=== PATIENT | female | born 1980 | race Caucasian/White ===

== ENCOUNTER 2024-03-07 13:48 | Outpatient (CLI) | payer OTHER, SELFPAY ==
--- NOTE | 2024-03-07 14:00 | CT_ITS ---
Patient: YAKELIN ROE Facility:?[facility] RIS Patient ID:?[id number] Site Patient ID:?[id number]. Site :?[id number] Study:?CT-Extremity Left FOOT-03/07/2024 8:01:42 PM Ordering Physician:LOREE Final Report: EXAM: CT OF THE LEFT FOOT, WITHOUT CONTRAST CLINICAL INDICATION: Pain following recent injury. COMPARISON PLAIN FILMS: 03/07/2024. COMPARISON CROSS-SECTIONAL IMAGING STUDIES: CT of the ankle from same day. TECHNICAL: Non-contrast CT of the foot with axial images. Sagittal oblique and coronal oblique images were created. FINDINGS: OSSEOUS STRUCTURES: Thin subcentimeter avulsion fractures from the dorsal and aspect of the anterior process of the calcaneus at the calcaneocuboid joint. Thin subcentimeter avulsion fractures from the plantar medial aspect of the cuboid at the calcaneocuboid articulation. No dorsal talar or navicular avulsion fractures. No additional fractures are evident. JOINT SPACES: Joint spaces within the visualized forefoot, at the midfoot forefoot junction and within the midfoot are maintained. Normal Lisfranc interval. TENDONS AND MUSCLES: The flexor and extensor tendons are intact. No muscle atrophy or edema. SOFT TISSUES: Dorsal subcutaneous edema in the hindfoot and midfoot and lateral aspect of the midfoot. No subcutaneous hematoma. IMPRESSION: 1. Thin subcentimeter avulsion fracture fragments of the anterior process of the calcaneus and cuboid at the calcaneocuboid articulation. 2. Dorsal and lateral subcutaneous edema. Please note that all CT scans at this facility use dose modulation, iterative reconstruction, and/or weight-based dosing when appropriate to reduce radiation dose to as low as reasonably achievable. Dictated by Kennedy Casas MD @ 03/08/2024 1:02:14 PM Signed by:?Kennedy Casas MD @03/08/2024 1:02:14 PM (Electronic Signature
--- NOTE | 2024-03-07 14:30 | CT_ITS ---
Patient: YAKELIN ROE Facility:?[facility] Patient ID:?[id number] Site Patient ID:?[id number]. Site :?[id number] Study:?CT-Extremity Left ANKLE-03/07/2024 8:00:56 PM Ordering Physician:LOREE Final Report: EXAM: CT OF THE LEFT ANKLE, WITHOUT CONTRAST CLINICAL INDICATION: Pain following recent injury. COMPARISON STUDIES: 03/07/[address] of the foot from today. TECHNICAL: Non-contrast CT of the ankle with axial images. Sagittal oblique and coronal oblique reformatted images were created. FINDINGS: OSSEOUS STRUCTURES: Tibia: No fracture. Fibula: No fracture. Talus: No fracture. Calcaneous: Thin subcentimeter avulsion fractures of the lateral margin of the anterior process of the calcaneus at the calcaneocuboid articulation. Hindfoot: No fracture of the dorsal navicular. JOINT SPACES: Ankle: The ankle joint space is maintained without effusion. No talar dome osteochondral lesion. No loose bodies. Subtalar and talonavicular: Joint spaces are maintained. SOFT TISSUES: Subcutaneous edema in the dorsal aspect of the hindfoot and lateral ankle. No subcutaneous hematoma. MUSCLES: No intramuscular mass or hematoma. No muscle atrophy. TENDONS: The Achilles tendon is intact. No subluxation of the peroneal tendons. No retracted tendon tear. IMPRESSION: 1. Thin subcentimeter avulsion fractures of the anterior process of the calcaneus laterally at the calcaneocuboid articulation. Please see CT of the foot for further discussion of the midfoot. 2. Subcutaneous edema in the dorsal hindfoot and lateral ankle. Please note that all CT scans at this facility use dose modulation, iterative reconstruction, and/or weight-based dosing when appropriate to reduce radiation dose to as low as reasonably achievable. Dictated by Kennedy Casas MD @ 03/08/2024 12:57:48 PM Signed by:?Kennedy Casas MD @03/08/2024 12:57:48 PM (Electronic Signature)
== END 2024-03-07 13:49 | disposition home or self-care (01) ==
PROVIDERS: PCP Family Medicine; Visit Provider Physician Assistant
DX: M79.672 Pain in left foot (principal); S92.002A Unspecified fracture of left calcaneus, initial encounter for closed fracture; M25.572 Pain in left ankle and joints of left foot; S99.912A Unspecified injury of left ankle, initial encounter; S99.922A Unspecified injury of left foot, initial encounter
CPT/HCPCS: 73700

== ENCOUNTER 2024-08-01 12:36 | Outpatient (CLI) | payer OTHER, SELFPAY | END 2024-08-01 12:37 | disposition home or self-care (01) | LOC: FBOREF 12:37 | PROVIDERS: PCP Family Medicine; Visit Provider Family Medicine | DX: R31.9 Hematuria, unspecified (principal) | CPT/HCPCS: 80048; 87086 ==

== ENCOUNTER 2024-08-05 14:23 | Outpatient (CLI) | payer OTHER, SELFPAY ==
--- NOTE | 2024-08-05 15:00 | CRLHL7_ITS ---
For Patients: As a result of the Century Cures Act, medical imaging exams and procedure reports are released immediately into your electronic medical record. You may view this report before your referring provider. If you have questions, please contact your health care provider. INDICATION: Malignant neoplasm of left kidney; hematuria; partial left nephrectomy. COMPARISON: None. TECHNIQUE: CT abdomen and pelvis with intravenous contrast; coronal and sagittal reformats. FINDINGS: No nodules through the lung bases. No evidence of pleural effusion. Normal size cardiac silhouette without any pericardial effusion. Diffuse fatty infiltration of the liver. No focal hepatic or splenic pathology. No pancreatic pathology. Gallbladder is unremarkable. No adrenal pathology. Deformity lateral aspect upper pole left kidney probably related to the previous surgery. No enhancing mass lesions in the kidneys on either side. No retroperitoneal lymphadenopathy. Normal appendix. 2.3 cm cyst left ovary. IMPRESSION: 1. Nonenhancing lesions in the kidneys on either side; slight deformity upper pole left kidney probably postop. 2. Diffuse fatty infiltration of the liver. 3. A 2.3 cm cystic lesion left adnexa; suggest obtaining a pelvic ultrasound for further assessment. Please note that all CT scans at this facility use dose modulation, iterative reconstruction, and/or weight-based dosing when appropriate to reduce radiation dose to as low as reasonably achievable. Dictated by Niko Cerda MD @ 08/08/2024 12:38:18 PM (Electronically Signed)
== END 2024-08-05 14:24 | disposition home or self-care (01) ==
LOC: CT 14:24
PROVIDERS: PCP Family Medicine; Visit Provider Family Medicine
DX: C64.9 Malignant neoplasm of unspecified kidney, except renal pelvis (principal); R31.9 Hematuria, unspecified; K76.0 Fatty (change of) liver, not elsewhere classified; R93.89 Abnormal findings on diagnostic imaging of other specified body structures
CPT/HCPCS: 74177; Q9967

== ENCOUNTER 2024-08-16 16:51 | Outpatient (CLI) | payer OTHER, SELFPAY ==
--- NOTE | 2024-08-16 17:00 | CRLHL7_ITS ---
For Patients: As a result of the Century Cures Act, medical imaging exams and procedure reports are released immediately into your electronic medical record. You may view this report before your referring provider. If you have questions, please contact your health care provider. CLINICAL HISTORY: f/u CT left adnexal cyst TECHNIQUE: 2D johnson scale ultrasound. In addition color Doppler and spectral Doppler analysis was performed of the pelvis using a transvaginal approach. Comparison CT 08/05/2024 FINDINGS: On transvaginal imaging, the myometrium has a normal uniform echotexture. The endometrial lining measures 16 mm in thickness. The right ovary measures 2.7 x 1.5 x 2.0 cm in size and the right ovary measures 2.8 x 2.1 x 2.1 cm. The ovaries demonstrate normal arterial and venous blood flow on color Doppler and spectral Doppler analysis, as visualized. Arterial flow documentation of the right ovary is difficult due to body habitus. There are no suspicious fluid collections within the cul-de-sac. IMPRESSION: Interval resolution of previously noted left ovarian cyst. Dictated by Nathan Chavez MD @ 08/18/2024 12:33:54 PM (Electronically Signed)
== END 2024-08-16 16:52 | disposition home or self-care (01) ==
LOC: US 16:52
PROVIDERS: PCP Family Medicine; Visit Provider Family Medicine
DX: N83.202 Unspecified ovarian cyst, left side (principal); N83.201 Unspecified ovarian cyst, right side
CPT/HCPCS: 76830; 93976

== ENCOUNTER 2024-10-10 13:31 | Outpatient (CLI) | payer OTHER, SELFPAY ==
--- NOTE | 2024-10-10 13:40 | CRLHL7_ITS ---
For Patients: As a result of the Century Cures Act, medical imaging exams and procedure reports are released immediately into your electronic medical record. You may view this report before your referring provider. If you have questions, please contact your health care provider. BILATERAL DIGITAL SCREENING MAMMOGRAM WITH COMPUTER-AIDED DETECTION AND TOMOSYNTHESIS CLINICAL HISTORY: Routine screening exam. COMPARISON: 01/22/2023. TECHNIQUE: Digital mammogram in CC and MLO projections including computer-aided detection (CAD). Tomosynthesis was used in this interpretation. BREAST COMPOSITION: There are scattered areas of fibroglandular density. FINDINGS: RIGHT Breast: No suspicious findings LEFT Breast: Focal asymmetric density lateral left breast 5 cm from the nipple. IMPRESSION: LEFT breast asymmetry/mass. RECOMMENDATIONS: Additional mammographic views of the LEFT breast including 3D spot compression CC/MLO. LEFT breast ultrasound may also be required. The [facility] will contact the patient. A lay language report of this examination will be provided to the patient. BI-RADS Category 0: Incomplete: Need Additional Imaging Evaluation Dictated by Nathan Chavez MD @ 10/11/2024 8:56:12 AM YOSELYN/[email or web address] DW/Dictated by: Nathan Chavez MD @ 10/11/2024 8:56:00 AM (Electronically Signed)
== END 2024-10-10 13:32 | disposition home or self-care (01) ==
LOC: MAMMO 13:32
PROVIDERS: PCP Family Medicine; Visit Provider Family Medicine
DX: Z12.31 Encounter for screening mammogram for malignant neoplasm of breast (principal); N63.20 Unspecified lump in the left breast, unspecified quadrant
CPT/HCPCS: 77063; 77067

== ENCOUNTER 2024-10-20 10:24 | Outpatient (CLI) | payer OTHER, SELFPAY ==
--- NOTE | 2024-10-20 10:45 | CRLHL7_ITS ---
For Patients: As a result of the Cures Act, medical imaging exams and procedure reports are released immediately into your electronic medical record. You may view this report before your referring provider. If you have questions, please contact your health care provider. LEFT DIAGNOSTIC DIGITAL MAMMOGRAM WITH COMPUTER-AIDED DETECTION AND TOMOSYNTHESIS LEFT BREAST ULTRASOUND CLINICAL HISTORY: LEFT breast mass/asymmetry. COMPARISON: 10/10/2024 TECHNIQUE: Digital LEFT mammogram in 2 projections with computer-aided detection. Tomosynthesis was used in this interpretation. Real-time ultrasound imaging of LEFT breast with imaging documentation. Scanning was performed by both the technologist and the radiologist. BREAST COMPOSITION: There are scattered areas of fibroglandular density. FINDINGS: 3D spot compression CC/MLO LEFT breast mammogram images submitted. Decreased conspicuity of previously noted asymmetric density. No architectural distortion or suspicious calcifications. Targeted LEFT breast ultrasound performed at 2 o`clock 5 cm from the nipple. Normal fibroglandular tissue is present. No suspicious mass or fibrocystic change. IMPRESSION: Normal fibroglandular tissue. No suspicious findings. RECOMMENDATION: Routine screening mammography. A lay language report of this examination will be provided to the patient. BI-RADS Category 2. Benign Dictated by Nathan Chavez MD @ 10/20/2024 11:08:06 AM CRL:[email or web address] RD/Dictated by: Nathan Chavez MD @ 10/20/2024 11:08:00 AM (Electronically Signed)
--- NOTE | 2024-10-20 11:15 | CRLHL7_ITS ---
For Patients: As a result of the Century Cures Act, medical imaging exams and procedure reports are released immediately into your electronic medical record. You may view this report before your referring provider. If you have questions, please contact your health care provider. PLEASE SEE LEFT DIAGNOSTIC MAMMOGRAM OF SAME DAY FOR COMBINED REPORT. [email or web address] RD/Dictated by: Nathan Chavez MD @ 10/20/2024 11:29:00 AM (Electronically Signed)
== END 2024-10-20 10:25 | disposition home or self-care (01) ==
LOC: MAMMO 10:24
PROVIDERS: PCP Family Medicine; Visit Provider Family Medicine
DX: N63.20 Unspecified lump in the left breast, unspecified quadrant (principal); R92.8 Other abnormal and inconclusive findings on diagnostic imaging of breast
CPT/HCPCS: 76642; 77065; G0279

== ENCOUNTER 2024-10-27 14:43 | Outpatient (CLI) | payer OTHER, SELFPAY ==
--- NOTE | 2024-10-27 14:46 | W.PM.STED ---
Stress Test Note Date Date Seen: 10/27/24 Date of test: 10/27/24 Providers Primary care provider: Nathan Shore Stress test physician: Ting Acosta Stress Test Note Stress test ordered: Stress Echo Indication for test: Chest pain symptoms, palpitations Stress test medicine: None Results discussion: Resting EKG: Sinus rhythm, 99 beats per minute. Resting blood pressure: 135/85 Stress test: Patient is consented on ordered stress test which is a standard Cr protocol treadmill exercise stress echo. Patient was able to exercise for 11 minutes 2 seconds, terminating due to reaching heart rate goal and exercise capacity. This was equivalent of 12.1 Mets. She had a maximum heart rate of 189 beats per minute which was 126% of a calculated target of 150. Rate pressure product 27,840. There were no diagnostic ischemic changes, no arrhythmia. Of note patient felt couple episodes of the palpitations during the stress test portion but there was no EKG evidence of arrhythmia. She had no chest pain or discomfort during the stress test. She did have slow return of her heart rate overall but baseline heart rate is elevated at 99 on her pre exercise EKG. Impression: Subjectively negative, objectively negative EKG portion of this stress test. Follow up suggested: Patient is discharged to home in stable condition. Await echo images to couple this for a full formal diagnostic report. She will confer with Dr. Shore once report is back.
[2024-10-27 15:39] VITALS: BP 127/84; PULSE 121
== END 2024-10-27 14:44 | disposition home or self-care (01) ==
LOC: STRESS 14:43
PROVIDERS: PCP Family Medicine; Visit Provider Family Medicine
DX: R07.89 Other chest pain (principal)
CPT/HCPCS: 93016; 93325; 93351